=== PATIENT | male | born 1960 | race Native Hawaiian/Other Pacific Islander ===

== ENCOUNTER 2018-06-04 18:39 | Emergency (ER) | payer BC ==
[~2018-06-04] VITALS: Ht 175.3 cm; Wt 97.5 kg
[2018-06-04 20:39] LABS: PLATELET COUNT 192 K/uL (142-355)
[2018-06-04 21:45] VITALS: BP 120/82; TEMP 97.9
== END 2018-06-04 21:45 | disposition home or self-care (01) ==
LOC: ED 18:39
PROVIDERS: Family Medicine
DX: J02.0 Streptococcal pharyngitis (principal)
CPT/HCPCS: 36415; 80053; 85027; 87880; 96374; 99284; J2930

== ENCOUNTER 2019-10-20 11:00 | Outpatient (CLI) | payer BC | END 2019-10-20 11:04 | disposition short-term general hospital (02) | LOC: AMB 11:00 | DX: R55 Syncope and collapse (principal); M54.5 Low back pain; R20.0 Anesthesia of skin; Z98.890 Other specified postprocedural states | CPT/HCPCS: A0425; A0427 ==

== ENCOUNTER 2020-03-28 10:06 | Outpatient (CLI) | payer BC | END 2020-03-28 19:09 | disposition home or self-care (01) | LOC: RAD 10:06 | DX: G20 Parkinson's disease (principal); R13.10 Dysphagia, unspecified; G24.01 Drug induced subacute dyskinesia ==

== ENCOUNTER 2020-11-16 08:02 | Outpatient (CLI) | payer BC | END 2020-11-16 20:36 | disposition home or self-care (01) | LOC: US 08:02 | PROVIDERS: ATTEND Nurse Practitioner Family | DX: R14.0 Abdominal distension (gaseous) (principal); R82.90 Unspecified abnormal findings in urine; R60.0 Localized edema; Z80.42 Family history of malignant neoplasm of prostate ==